=== PATIENT | male | born 1940 | race Caucasian/White ===

== ENCOUNTER → 2018-05-29 | Day surgery (SDC) | payer MEDICARE, BC ==
[~2018-05-29] MED LIST: ASPI-630 PO; ATOR20TA58 PO; CARV25TA2 PO; FURO40TA4 PO; IV RINGERS,LACTATED 1000ML 1,000 ML IV SCH; LIDOCAINE 2% PF 5 ML VIAL. ONE; METF10007 PO; PIOG30TA41 PO; PROPOFOL 20 ML IV ONE; SITA100T PO; TAMS0.4C97 PO
[2018-05-29 10:28] VITALS: BP 151/76
--- NOTE | 2018-05-30 01:00 | CONS ---
DATE OF CONSULTATION: 05/29/2018 REFERRING PHYSICIAN: RUTHY Flowers. REASON FOR CONSULTATION: Dysphagia. HISTORY OF PRESENT ILLNESS: A 77-year-old male with past medical history significant for hyperlipidemia, diabetes, esophageal diverticulum, gastric ulcers, hypertension, CHF, diabetes, is seen for increased difficulties with swallowing, normally occurs with solids, but not with liquids. Risk factor does not include tobacco or alcohol. It has been intermittent in nature. Prior endoscopy did reveal mid esophageal diverticulum, which will be reassessed for size and location. Weight and appetite are stable. He is otherwise without additional complaints. PAST MEDICAL HISTORY: Hypertension, hyperlipidemia, diabetes, congestive heart failure. ALLERGIES: None. MEDICATIONS: Include aspirin, atorvastatin, carvedilol, furosemide, metformin, Actos, Januvia, and Flomax. FAMILY AND SOCIAL HISTORY: Significant for hypertension. He is a social drinker, nonsmoker. PAST SURGICAL HISTORY: Knee replacement, vasectomy, CABG, pacemaker placement, defibrillator, hernia repair. REVIEW OF SYSTEMS: Per records. PHYSICAL EXAMINATION: GENERAL: Reveals a well-nourished, well-developed male, who is alert, cooperative, in no acute distress. VITAL SIGNS: Temperature 97.2, pulse 75, respirations 20. HEENT: Normocephalic, atraumatic head. Pupils and extraocular movements are not tested. Sclerae anicteric. NECK: Supple. LUNGS: Clear. CARDIOVASCULAR: Reveals an S1, S2 without S3, S4 or appreciable murmur. ABDOMEN: Reveals soft abdomen, normal bowel sounds without appreciable hepatosplenomegaly. EXTREMITIES: Reveals no cyanosis, clubbing, or edema. IMPRESSION: Dysphagia, etiology is to be determined. Differential includes Schatzki's ring, presbyesophagus, achalasia, malignancy, and large esophageal diverticulum with others. Therefore, recommend upper endoscopy with possible biopsy and dilatation. Risks and benefits have been discussed with the patient including risks of hemorrhage or perforation and is willing to proceed. I would like to thank Ines Mota for allowing us to consult and participate in this patient's care. BI KINGSLEY MD DR: MOLLY/keila JOB#: [id number] / [id number]
== END | disposition home or self-care (01) ==
LOC: SURG 08:51
PROVIDERS: ATTEND Internal Medicine Gastroenterology
DX: K22.5 Diverticulum of esophagus, acquired (principal); I11.0 Hypertensive heart disease with heart failure; I50.9 Heart failure, unspecified; E11.9 Type 2 diabetes mellitus without complications; E78.5 Hyperlipidemia, unspecified; Z79.84 Long term (current) use of oral hypoglycemic drugs; Z79.899 Other long term (current) drug therapy; Z82.49 Family history of ischemic heart disease and other diseases of the circulatory system; Z72.89 Other problems related to lifestyle; Z98.52 Vasectomy status; Z95.0 Presence of cardiac pacemaker; Z98.890 Other specified postprocedural states; Z95.1 Presence of aortocoronary bypass graft
CPT/HCPCS: 43235; 82962; J2001; J2704

== ENCOUNTER → 2018-11-20 | Day surgery (SDC) | payer MEDICARE, BC ==
[~2018-11-20] MED LIST changes: +ATOR10TA PO; +CARV6.25 PO; +FURO-69 PO; +IV RINGERS,LACTATED 1000ML 1,000 ML IV ONE; -IV RINGERS,LACTATED 1000ML 1,000 ML IV SCH; +METF1000 PO; +OMEP20TA8 PO
[2018-11-20 10:08] VITALS: BP 204/82
== END ==
LOC: ENDOS 07:49
PROVIDERS: ATTEND Internal Medicine Gastroenterology
DX: K57.30 Diverticulosis of large intestine without perforation or abscess without bleeding (principal); K64.0 First degree hemorrhoids; E11.9 Type 2 diabetes mellitus without complications; I11.0 Hypertensive heart disease with heart failure; I50.9 Heart failure, unspecified; E78.00 Pure hypercholesterolemia, unspecified; K21.9 Gastro-esophageal reflux disease without esophagitis; F15.90 Other stimulant use, unspecified, uncomplicated; Z79.82 Long term (current) use of aspirin; Z98.52 Vasectomy status; Z96.659 Presence of unspecified artificial knee joint; Z95.1 Presence of aortocoronary bypass graft; Z95.810 Presence of automatic (implantable) cardiac defibrillator; Z98.890 Other specified postprocedural states; Z79.84 Long term (current) use of oral hypoglycemic drugs
CPT/HCPCS: 45378; J2001; J2704